=== PATIENT | female | born 1950 | race Caucasian/White ===

== ENCOUNTER 2017-06-20 14:20 | Emergency (ER) | payer SELFPAY ==
[~2017-06-20 14:20] MED LIST: MECL-62 PO
[2017-06-20 14:23] VITALS: BP 172/81; PULSE 90; RESP 18; TEMP 98.4; O2SAT 95
[2017-06-20 18:27] VITALS: BP 215/93; PULSE 86; RESP 20; O2SAT 98
--- NOTE | 2017-06-20 19:27 | PD ---
HPI Chief Complaint: Respiratory Symptoms Time Seen by Provider: 19:27 Travel History International Travel<30 days: No Contact w/Intl Traveler<30days: No Traveled to known affect area: No History of Present Illness HPI 66 YO F presents to the ED for evaluation of dyspnea on exertion. Patient states she's been going on "for a while" but worsened over the last couple days. She denies fevers, chills, chest pain, palpitations, cough, nausea, vomiting, dysuria, back pain. She states that she's been limited in her ambulation recently secondary to arthritis of the bilateral knees. She is also concerned because she thinks she may be a diabetic. She's not seen a doctor in 7 years. PFSH Past Medical History Arthritis: Yes Atrial Fibrillation: Yes Heart Rhythm Problems: Yes Cancer: No Cardiovascular Problems: Yes Diminished Hearing: No Endocrine: Yes (hypothyroidism) Gastrointestinal Disorders: Yes Genitourinary: No Hiatal Hernia: Yes (umbilical) Hypertension: Yes Implanted Vascular Access Dvce: No Musculoskeletal: Yes Neurologic: No Psychiatric: No Reproductive: No Respiratory: No Pneumonia: Yes Thyroid Disease: Yes Menopausal: Yes Past Surgical History Cardiac Surgery: Yes ("fluid removed from around heart") Gynecologic Surgery: Yes (right overy removed/multiple D&C) Other Surgery: Yes (right breast lumpectomy/breast augmentation) Social History Alcohol Use: No Tobacco Use: No Substance Use: No Allergies-Medications (Allergen,Severity, Reaction): Coded Allergies: codeine (Unverified Adverse Reaction, Intermediate, Nausea/Vomiting, ) Reported Meds & Prescriptions Reported Meds & Active Scripts Active Metformin (Metformin HCl) 500 Mg Tab 500 Mg PO BIDPC With meals Lisinopril 5 Mg Tab 5 Mg PO DAILY Physical Exam Narrative GENERAL: Obese, well-developed, pleasant white female in no acute distress. SKIN: Focused skin assessment warm/dry. HEAD: Normocephalic. EYES: No scleral icterus. No injection or drainage. NECK: Supple, trachea midline. No JVD or lymphadenopathy. CARDIOVASCULAR: Regular rate and rhythm without murmurs, gallops, or rubs. RESPIRATORY: Breath sounds clear and equal bilaterally. No accessory muscle use. GASTROINTESTINAL: Abdomen soft, non-tender, nondistended. Active bowel sounds. MUSCULOSKELETAL: No cyanosis, or edema. BACK: Nontender without obvious deformity. No CVA tenderness. Data Data Last Documented VS Vital Signs Date Time Temp Pulse Resp B/P (MAP) Pulse Ox O2 Delivery O2 Flow Rate FiO2 06/20/17 22:34 06/20/17 20:55 81 16 97 Room Air 06/20/17 14:23 98.4 Orders Orders Electrocardiogram (06/20/17 14:50) Complete Blood Count With Diff (06/20/17 19:41) Comprehensive Metabolic Panel (06/20/17 19:41) B-Type Natriuretic Peptide (06/20/17 19:41) Act Partial Throm Time (Ptt) (06/20/17 19:41) Prothrombin Time / Inr (Pt) (06/20/17 19:41) Magnesium (Mg) (06/20/17 19:41) Ckmb (Isoenzyme) Profile (06/20/17 19:41) Troponin I (06/20/17 19:41) Urinalysis - C+S If Indicated (06/20/17 19:41) Iv Access Insert/Monitor (06/20/17 19:41) Ecg Monitoring (06/20/17 19:41) Oximetry (06/20/17 19:41) Chest, Single Ap (06/20/17 19:41) Sodium Chloride 0.9% Flush (Ns Flush) (06/20/17 19:45) Labs Laboratory Tests Test 06/20/17 19:20 06/20/17 19:50 White Blood Count 7.2 TH/MM3 Red Blood Count 5.53 MIL/MM3 Hemoglobin 16.2 GM/DL Hematocrit 48.5 % Mean Corpuscular Volume 87.8 FL Mean Corpuscular Hemoglobin 29.4 PG Mean Corpuscular Hemoglobin Concent 33.4 % Red Cell Distribution Width 14.0 % Platelet Count 211 TH/MM3 Mean Platelet Volume 8.7 FL Neutrophils (%) (Auto) 55.7 % Lymphocytes (%) (Auto) 34.7 % Monocytes (%) (Auto) 7.3 % Eosinophils (%) (Auto) 1.8 % Basophils (%) (Auto) 0.5 % Neutrophils # (Auto) 4.0 TH/MM3 Lymphocytes # (Auto) 2.5 TH/MM3 Monocytes # (Auto) 0.5 TH/MM3 Eosinophils # (Auto) 0.1 TH/MM3 Basophils # (Auto) 0.0 TH/MM3 CBC Comment DIFF FINAL Differential Comment Prothrombin Time 10.9 SEC Prothromb Time International Ratio 1.0 RATIO Activated Partial Thromboplast Time 22.7 SEC Blood Urea Nitrogen 22 MG/DL Creatinine 0.70 MG/DL Random Glucose 348 MG/DL Total Protein 7.6 GM/DL Albumin 3.9 GM/DL Calcium Level 8.9 MG/DL Magnesium Level 2.1 MG/DL Alkaline Phosphatase 128 U/L Aspartate Amino Transf (AST/SGOT) 29 U/L Alanine Aminotransferase (ALT/SGPT) 55 U/L Total Bilirubin 0.4 MG/DL Sodium Level 135 MEQ/L Potassium Level 3.9 MEQ/L Chloride Level 100 MEQ/L Carbon Dioxide Level 24.7 MEQ/L Anion Gap 10 MEQ/L Estimat Glomerular Filtration Rate 84 ML/MIN Total Creatine Kinase 69 U/L Troponin I LESS THAN 0.02 NG/ML B-Type Natriuretic Peptide 3 PG/ML Urine Color YELLOW Urine Turbidity CLEAR Urine pH 5.0 Urine Specific [place] 1.040 Urine Protein TRACE mg/dL Urine Glucose (UA) 1000 mg/dL Urine Ketones TRACE mg/dL Urine Occult Blood NEG Urine Nitrite NEG Urine Bilirubin NEG Urine Urobilinogen LESS THAN 2.0 MG/DL Urine Leukocyte Esterase NEG Urine RBC 1 /hpf Urine WBC 2 /hpf Urine Bacteria RARE /hpf Urine Mucus FEW /lpf Microscopic Urinalysis Comment CULT NOT INDICATED MDM Medical Decision Making Medical Screen Exam Complete: Yes Emergency Medical Condition: Yes Interpretation(s) EKG: Rate 93, ectopic atrial rhythm. OH interval 148, QRS 106, QTC 379. Normal axis. No acute ST changes. Reviewed by Dr. Sesay. Differential Diagnosis Deconditioning versus CHF versus pneumonia versus DM versus HTN versus other Narrative Course 66 YO F presents to the ED for evaluation of dyspnea on exertion. Patient states she's been going on "for a while" but worsened over the last couple days. She denies fevers, chills, chest pain, palpitations, cough, nausea, vomiting, dysuria, back pain. She states that she's been limited in her ambulation recently secondary to arthritis of the bilateral knees. She also is concerned because she thinks she may be a diabetic. She's not seen a doctor in 7 years. Vitals reviewed. Physical exam reveals an obese white female in no acute distress. The breath sounds are clear bilaterally. Abdomen is soft, protuberant, nontender. No lower extremity edema. No CVA tenderness. Lab work reveals elevated blood sugar and glucosuria. Suspect that her dyspnea on exertion is secondary to deconditioning. I discussed the patient, workup and plan with Dr. Sesay who is in agreement. Patient was prescribed metformin 500 mg twice a day before meals and lisinopril 5 mg daily. She was provided information for follow-up with the [facility]. We discussed the medications and diabetic lifestyle. The patient indicated understanding of the instructions and is agreeable to the care plan. She is stable and discharged home. Diagnosis Primary Impression: Hyperglycemia Additional Impression: Hypertension Qualified Codes: I10 - Essential (primary) hypertension Referrals: [facility] Patient Instructions: Diabetic Hyperglycemia (ED), General Instructions, Hypertension (DC) Additional Instructions: Rest, hydrate. Return to normal, gentle activities as tolerated. Begin medications as prescribed. Follow-up with the [facility] this week. Return to the ED for any urgent or emergent medical condition. Med/Other Pt SpecificInfo: Prescription(s) given Scripts Metformin (Metformin) 500 Mg Tab 500 MG PO BIDPC for Blood Sugar Management, #60 TAB 0 Refills With meals Prov: Marine Sesay MD 06/20/17 Lisinopril (Lisinopril) 5 Mg Tab 5 MG PO DAILY for Blood Pressure Management, #30 TAB 0 Refills Prov: Marine Sesay MD 06/20/17 Disposition: 01 DISCHARGE HOME Condition: Stable Frances Cano Jun 20, 2017 19:27
[2017-06-20 19:28] VITALS: BP 179/77; PULSE 85; RESP 16; O2SAT 97
[2017-06-20] MEDS ORDERED: SODIUM CHLORIDE 0.9% FLUSH 10 ML FLUSH IVF PRN (19:45)
--- NOTE | 2017-06-20 20:17 | RADRPT ---
EXAM DATE/TIME: 06/20/2017 19:57 [facility] COMPARISON: CT PULMONARY ANGIOGRAM, January 06, 2016, 11:30. CHEST SINGLE AP, January 06, 2016, 9:59. INDICATIONS : Shortness of breath. MEDICAL HISTORY : Cardiovascular disease. Hypertension. SURGICAL HISTORY : Breast augmentation. ENCOUNTER: Initial ACUITY: 1 day PAIN SCORE: 0/10 LOCATION: Bilateral chest FINDINGS: A single view of the chest demonstrates the lungs to be symmetrically aerated without evidence of mas s, infiltrate or effusion. The cardiomediastinal contours are unremarkable. Osseous structures are grossly intact. A 13 mm long screw projects over the left lung base and the posterior portion of the left ninth rib. I am uncertain of the exact location. I don't see the screw on the prior studies. CONCLUSION: Small screw projects over the left lung base. Please see above. Otherwise normal one view chest x-ray . Jose Grossman MD on June 20, 2017 at 20:14 Board Certified Radiologist. This report was verified electronically.
[2017-06-20 20:19] LABS: BACTERIA, URINE RARE /hpf; BLOOD, URINE NEG (NEG); COMMENT (UR) CULT NOT INDICATED; CULTURE IF INDICATED CULT NOT INDICATED; GLUCOSE,URINE 1000 mg/dL (NEG); KETONE, URINE TRACE mg/dL (NEG); MUCUS URINE FEW /lpf (OCC); NITRITE,URINE NEG (NEG); URINE COLOR YELLOW (YELLW/STRAW)
[2017-06-20 20:23] LABS: APTT (PATIENT) 22.7 SEC (24.3-30.1); PROTHROMBIN TIME - PATIENT 10.9 SEC (9.8-11.6)
[2017-06-20 20:29] LABS: BASOPHIL % 0.5 % (0.0-2.0); EOSINOPHIL # 0.1 TH/MM3 (0-0.4); EOSINOPHIL % 1.8 % (0.0-4.0); HEMATOCRIT 48.5 % (35.0-46.0); HEMO FLAGS DIFF FINAL; LYMPH % 34.7 % (9.0-44.0); LYMPHOCYTE # 2.5 TH/MM3 (1.0-4.8); MEAN CELL VOLUME 87.8 FL (80.0-100.0); MEAN CORPUSCULAR HEMOGLOBIN 29.4 PG (27.0-34.0); MEAN CORPUSCULAR HGB CONC 33.4 % (32.0-36.0); MONO % 7.3 % (0.0-8.0); NEUT % 55.7 % (16.0-70.0); PLATELET COUNT 211 TH/MM3 (150-450); RED BLOOD COUNT 5.53 MIL/MM3 (4.00-5.30); WHITE BLOOD COUNT 7.2 TH/MM3 (4.0-11.0)
[2017-06-20 20:35] LABS: ANION GAP 10 MEQ/L (5-15); AST (GOT) 29 U/L (15-37); BICARBONATE 24.7 MEQ/L (21.0-32.0); BLOOD UREA NITROGEN 22 MG/DL (7-18); CHLORIDE 100 MEQ/L (98-107); GLOMERULAR FILTRATION RATE 84 ML/MIN (>89); MAGNESIUM 2.1 MG/DL (1.5-2.5); POTASSIUM 3.9 MEQ/L (3.5-5.1); SODIUM (NA) 135 MEQ/L (136-145)
[2017-06-20 20:36] LABS: ALT (GPT) 55 U/L (10-53)
[2017-06-20 20:38] LABS: ALKALINE PHOSPHATASE 128 U/L (45-117); TOTAL BILIRUBIN ADULT 0.4 MG/DL (0.2-1.0)
[2017-06-20 20:54] LABS: CREATINE KINASE 69 U/L (26-192)
[2017-06-20 20:55] VITALS: BP 128/62; PULSE 81; RESP 16; O2SAT 97
[2017-06-20] MEDS ORDERED: LISI-519 PO (22:05)
[2017-06-20] MEDS ORDERED: METF500T PO (22:05)
--- NOTE | 2017-06-21 21:49 | EKG ---
Date Performed: 06/20/2017 Time Performed: 14:56:37 PTAGE: 66 years EKG: ECTOPIC ATRIAL RHYTHM POSSIBLE LEFT ATRIAL ENLARGEMENT NONSPECIFIC T-WAVE ABNORMALITY ABNOR MAL ECG PREVIOUS TRACING : 01/06/2016 09.53 Compared to the previous tracing ectopic atrial rhythm pres ent DOCTOR: Rocio Castellon Interpretating Date/Time 06/21/2017 21:49:06
== END 2017-06-20 22:35 | disposition home or self-care (01) ==
LOC: NEPC 14:20
DX: E11.9 Type 2 diabetes mellitus without complications (principal); I10 Essential (primary) hypertension; E03.9 Hypothyroidism, unspecified; M19.90 Unspecified osteoarthritis, unspecified site; I48.91 Unspecified atrial fibrillation
CPT/HCPCS: 71010; 80053; 81001; 82550; 83735; 83880; 84484; 85025; 85610; 85730; 93005; 99285